=== PATIENT | male | born 1980 | race Caucasian/White ===

== ENCOUNTER 2024-06-10 13:52 | Emergency (ER) | payer MEDICARE ==
[~2024-06-10] VITALS: Ht 157.4 cm; Wt 70.3 kg
[2024-06-10] MEDS ORDERED: PREDNISONE20 M1 PO (14:15)
[2024-06-10] MEDS ORDERED: methylPREDNISolone sod succ 125 MG VIAL IM ONE (14:15)
== END 2024-06-10 14:17 | disposition home or self-care (01) ==
LOC: ED 13:52
DX: L25.9 Unspecified contact dermatitis, unspecified cause (principal); Z88.0 Allergy status to penicillin; Z88.8 Allergy status to other drugs, medicaments and biological substances

== ENCOUNTER 2024-08-09 12:14 | Emergency (ER) | payer MEDICARE ==
[~2024-08-09] VITALS: Ht 175.2 cm; Wt 64.4 kg
[~2024-08-09 12:14] MED LIST: PREDNISONE20 M1 PO
[2024-08-09] MEDS ORDERED: METHOCARBAMOL500 M1 PO (16:03)
[2024-08-09] MEDS ORDERED: NAPROSYN500 MG PO (16:03)
[2024-08-09] MEDS ORDERED: NAPROXEN 250 MG TAB PO ONE (16:05)
[2024-08-09] MEDS ORDERED: METHOCARBAMOL 750 MG TAB PO ONE (16:05)
== END 2024-08-09 16:22 | disposition home or self-care (01) ==
LOC: ED 12:14
DX: S63.105A Unspecified dislocation of left thumb, initial encounter (principal); M54.50 Low back pain, unspecified; M25.532 Pain in left wrist; M25.531 Pain in right wrist; W11.XXXA Fall on and from ladder, initial encounter; Y93.89 Activity, other specified; Y92.89 Other specified places as the place of occurrence of the external cause; Y99.8 Other external cause status

== ENCOUNTER 2025-01-28 13:54 | Emergency (ER) | payer OTHER ==
[~2025-01-28] VITALS: Ht 157.4 cm; Wt 74.8 kg
[~2025-01-28 13:54] MED LIST changes: +METHOCARBAMOL500 M1 PO; +NAPROSYN500 MG PO
[2025-01-28] MEDS ORDERED: Lidocaine Hydrochloride 15 ML UDC PO STA (14:22)
[2025-01-28] MEDS ORDERED: MG-AL HYDROXIDE/SIMETICONE 30 ML UDC PO STA (14:22)
[2025-01-28] MEDS ORDERED: Dicyclomine Hydrochloride 20 MG/10 ML OSYR PO STA (14:22)
== END 2025-01-28 16:54 | disposition home or self-care (01) ==
LOC: ED 13:54
DX: R09.A2 Foreign body sensation, throat (principal); Z88.0 Allergy status to penicillin; Z88.8 Allergy status to other drugs, medicaments and biological substances